=== PATIENT | male | born 1995 ===

== ENCOUNTER 2023-10-24 00:10 | Emergency (ER) | payer OTHER ==
[~2023-10-24] VITALS: Ht 172.7 cm; Wt 122.0 kg
[2023-10-24 02:11] LABS: Albumin/Globulin Ratio 1.1 (0.8-1.8); Bilirubin, Total 0.4 mg/dL (0.1-1.0); Bun/Creatinine Ratio 17.6 (12.0-20.0); Calcium, Blood 8.5 mg/dL (8.5-10.1); Creatinine, Blood 0.63 mg/dL (0.60-1.20); Globulin, Blood 3.8 g/dL (2.2-4.0); Total Protein, Blood 7.8 g/dL (6.4-8.2)
[2023-10-24 02:21] LABS: BASOPHILS ABSOLUTE AUTO 0.08 K/mm3 (0.00-0.23); BASOPHILS PERCENT AUTO 1 % (0-2); EOSINOPHILS ABSOLUTE AUTO 0.04 K/mm3 (0.00-0.68); EOSINOPHILS PERCENT AUTO 0 % (0-6); Hematocrit 46.4 % (37.0-53.0); Hemoglobin 15.6 g/dL (13.5-17.5); IMMATURE GRAN ABSOLUTE AUTO 0.06 K/mm3 (0.00-0.10); IMMATURE GRAN PERCENT AUTO 0 % (0-1); LYMPHOCYTES PERCENT AUTO 11 % (21-46); MONOCYTES ABSOLUTE AUTO 1.22 K/mm3 (0.16-1.47); MONOCYTES PERCENT AUTO 7 % (4-13); Mean Corpuscular HGB Conc 33.6 g/dL (31.5-36.5); Mean Corpuscular Volume 89 fL (80-100); Mean Platelet Volume 10.7 fL (9.1-12.4); NEUTROPHILS ABSOLUTE AUTO 13.57 K/mm3 (1.96-9.15); NEUTROPHILS PERCENT AUTO 81 % (41-73); Platelet Count 273 K/mm3 (150-400); RDW Standard Deviation 39.1 fL (35.1-46.3); White Blood Cell Count 16.77 K/mm3 (4.00-11.30)
[2023-10-24 03:04] LABS: Source, Urine Clean Catch
[2023-10-24] MEDS ORDERED: NS 1,000 ML IV SCH (03:10)
[2023-10-24 03:24] LABS: Appearance, Urine Clear (Clear); Bilirubin, Urine Neg (Neg); Blood, Urine Neg (Neg); Color, Urine Yellow (P-Yellow); Glucose Qualitative, Urine Neg (Neg); Ketones, Urine Neg (Neg); Leukocyte Esterase, Urine Neg (Neg); Nitrite, Urine Neg (Neg); Protein, Urine Neg (Neg); Urobilinogen, Urine NORM (Normal)
[2023-10-24] MEDS ORDERED: ONDA4ODT MM (05:12)
== END 2023-10-24 05:30 | disposition home or self-care (01) ==
LOC: ER 00:10
PROVIDERS: Emergency Medicine; Student in an Organized Health Care Education/Training Program
DX: R11.2 Nausea with vomiting, unspecified (principal); R10.13 Epigastric pain; E86.0 Dehydration; Z68.41 Body mass index [BMI] 40.0-44.9, adult
CPT/HCPCS: 76705; 80053; 81003; 83690; 85025; 87086; 99284-25; J7030

== ENCOUNTER → 2023-11-01 | Outpatient (CLI) | payer OTHER ==
[~2023-11-01] MED LIST: AMOCLA875 PO; ONDA4ODT MM; OXAYDO5 M4 PO
[2023-11-01 14:25] LABS: BASOPHILS PERCENT AUTO 1 % (0-2); EOSINOPHILS ABSOLUTE AUTO 0.11 K/mm3 (0.00-0.68); EOSINOPHILS PERCENT AUTO 1 % (0-6); Hematocrit 45.4 % (37.0-53.0); Hemoglobin 15.5 g/dL (13.5-17.5); IMMATURE GRAN ABSOLUTE AUTO 0.04 K/mm3 (0.00-0.10); IMMATURE GRAN PERCENT AUTO 0 % (0-1); LYMPHOCYTES ABSOLUTE AUTO 3.09 K/mm3 (0.84-5.20); LYMPHOCYTES PERCENT AUTO 25 % (21-46); MONOCYTES ABSOLUTE AUTO 0.94 K/mm3 (0.16-1.47); MONOCYTES PERCENT AUTO 8 % (4-13); Mean Corpuscular HGB 30.4 pg (26.0-34.0); Mean Corpuscular HGB Conc 34.1 g/dL (31.5-36.5); Mean Corpuscular Volume 89 fL (80-100); Mean Platelet Volume 9.9 fL (9.1-12.4); NEUTROPHILS ABSOLUTE AUTO 8.23 K/mm3 (1.96-9.15); NEUTROPHILS PERCENT AUTO 66 % (41-73); Platelet Count 284 K/mm3 (150-400); RDW Coefficient Variation 11.9 % (11.7-14.2); RDW Standard Deviation 38.3 fL (35.1-46.3); White Blood Cell Count 12.51 K/mm3 (4.00-11.30)
[2023-11-01 14:26] LABS: Albumin, Blood 3.7 g/dL (3.4-5.0); Albumin/Globulin Ratio 0.8 (0.8-1.8); Bilirubin, Total 0.5 mg/dL (0.1-1.0); Bun/Creatinine Ratio 13.2 (12.0-20.0); Calcium, Blood 9.2 mg/dL (8.5-10.1); Creatinine, Blood 0.76 mg/dL (0.60-1.20); Globulin, Blood 4.5 g/dL (2.2-4.0); Potassium, Blood 3.8 mmol/L (3.5-5.5); Total Protein, Blood 8.2 g/dL (6.4-8.2)
== END ==
LOC: LAB SHORT 14:23 → LAB 14:23
PROVIDERS: Physician Assistant
DX: R10.9 Unspecified abdominal pain (principal)
CPT/HCPCS: 80053; 83690; 85025

== ENCOUNTER 2023-11-02 17:27 | Observation (INO) | payer OTHER ==
[~2023-11-02] VITALS: Ht 172.7 cm; Wt 122.9 kg
[~2023-11-02 17:27] MED LIST changes: -AMOCLA875 PO; -OXAYDO5 M4 PO
[2023-11-02] MEDS ORDERED: Ketorolac Tromethamine 15mg Vial IV ONE (17:40)
[2023-11-02] MEDS ORDERED: Ondansetron HCl 2 MG / ML 2ML Vial IV ONE ×2 (17:40→19:40)
[2023-11-02] MEDS ORDERED: NS 1,000 ML IV SCH ×2 (17:40→21:00)
[2023-11-02 18:00] LABS: BASOPHILS ABSOLUTE AUTO 0.07 K/mm3 (0.00-0.23); BASOPHILS PERCENT AUTO 0 % (0-2); EOSINOPHILS ABSOLUTE AUTO 0.03 K/mm3 (0.00-0.68); EOSINOPHILS PERCENT AUTO 0 % (0-6); Hematocrit 45.8 % (37.0-53.0); Hemoglobin 16.2 g/dL (13.5-17.5); IMMATURE GRAN ABSOLUTE AUTO 0.09 K/mm3 (0.00-0.10); IMMATURE GRAN PERCENT AUTO 1 % (0-1); LYMPHOCYTES ABSOLUTE AUTO 2.95 K/mm3 (0.84-5.20); LYMPHOCYTES PERCENT AUTO 17 % (21-46); MONOCYTES ABSOLUTE AUTO 1.12 K/mm3 (0.16-1.47); MONOCYTES PERCENT AUTO 6 % (4-13); Mean Corpuscular HGB 30.5 pg (26.0-34.0); Mean Corpuscular HGB Conc 35.4 g/dL (31.5-36.5); Mean Corpuscular Volume 86 fL (80-100); Mean Platelet Volume 10.3 fL (9.1-12.4); NEUTROPHILS ABSOLUTE AUTO 13.67 K/mm3 (1.96-9.15); NEUTROPHILS PERCENT AUTO 76 % (41-73); Platelet Count 382 K/mm3 (150-400); RDW Coefficient Variation 11.9 % (11.7-14.2); RDW Standard Deviation 37.6 fL (35.1-46.3); Red Blood Cell Count 5.31 M/mm3 (4.30-5.90); White Blood Cell Count 17.93 K/mm3 (4.00-11.30)
[2023-11-02 18:23] LABS: Albumin/Globulin Ratio 0.9 (0.8-1.8); Bun/Creatinine Ratio 21.4 (12.0-20.0); Calcium, Blood 9.4 mg/dL (8.5-10.1); Creatinine, Blood 0.65 mg/dL (0.60-1.20); Globulin, Blood 4.3 g/dL (2.2-4.0); Potassium, Blood 3.8 mmol/L (3.5-5.5); Total Protein, Blood 8.3 g/dL (6.4-8.2)
[2023-11-02] MEDS ORDERED: HYDROmorphone HCl/Pf 1MG SYR IV ONE ×2 (18:30→19:55)
[2023-11-02 18:54] LABS: Influenza A, PCR NEGATIVE (NEGATIVE); Influenza B, PCR NEGATIVE (NEGATIVE); Resp Syncytial Virus, PCR NEGATIVE (NEGATIVE); SARS-Cov-2 (COVID-19) PCR, MMC NEGATIVE (NEGATIVE)
[2023-11-02] MEDS ORDERED: Piperacillin/Tazobactam Sod 4.5 GM in NS 100 ML IV ONE (20:20)
[2023-11-02] MEDS ORDERED: Ondansetron HCl 2 MG / ML 2ML Vial IV PRN (20:45)
[2023-11-02] MEDS ORDERED: HYDROmorphone HCl/Pf 1MG SYR IV PRN (20:50)
[2023-11-02 22:53] VITALS: BP 169/105
[2023-11-03] VITALS (21 sets, daily range): BP systolic 150–188; BP diastolic 90–127
[2023-11-03] MEDS ORDERED: Piperacillin/Tazobactam Sod 4.5 GM in NS 100 ML IV SCH (03:00)
--- NOTE | 2023-11-03 04:41 | NUR ---
SHIFT SUMMARY PT ER ADMIT THIS SHIFT FOR ACUTE APPY. PT PAIN HAS BEEN MANAGED WITH MEDS PER EMAR. NO NAUSEA OR VOMITTING. PT HAS BEEN UP AND AMBULATING IN ROOM INDEPENDENTLY. IV ABX PER ORDERS, IVF INFUSING. PLAN IS FOR SURGERY TODAY. BED LOWEST POSITION, CALL LIGHT WITHIN REACH.
--- NOTE | 2023-11-03 08:49 | NUR ---
DR HERNANDEZ IN TO SEE PT.
[2023-11-03] MEDS ORDERED: propofoL 20 ML IV ONE (09:58)
[2023-11-03] MEDS ORDERED: FentaNYL Citrate 50 MCG/ML 2 ML Injection ONE ×4 (09:58→14:08)
[2023-11-03] MEDS ORDERED: Rocuronium Bromide 10 MG/ML 5ML Injection IV ONE ×3 (09:59→12:20)
--- NOTE | 2023-11-03 10:52 | NUR ---
PT TO PRE OP
[2023-11-03] MEDS ORDERED: Bupivacaine 0.5% Inj 10 ML Vial ONE (10:53)
--- NOTE | 2023-11-03 11:07 | NUR ---
PT ARRIVES TO PACU VIA [facility] FOR PREOP CARE AT 1055. PLEASANT & COOPERATIVE. SURGICAL HAT/PAS SLEEVES/BP CUFF IN PLACE. AFEBRILE/VSS. SURGICAL PACK COMPLETE. LR AT TKO. WARM BLANKETS PLACED. NO COMPLAINTS. APPEARS COMFORTABLE & RELAXED. NOW RESTING QUIETLY.
[2023-11-03] MEDS ORDERED: Midazolam HCl 1MG / ML 2ML Vial ONE (11:30)
--- NOTE | 2023-11-03 11:47 | NUR ---
TO OR 1 VIA DEE DEE w/EQUAL OPPORTUNITY DIRECTOR AT 1145 IN STABLE CONDITION.
[2023-11-03] MEDS ORDERED: Metoclopramide HCl 5MG / ML 2ML Vial ONE (11:55)
[2023-11-03] MEDS ORDERED: Labetalol HCL 5 MG/ML 4ML Injection (Single Dose) ONE ×2 (11:56→14:12)
[2023-11-03] MEDS ORDERED: Phenylephrine HCl 100 MCG/ML-NS 10MLSYR (1MG/10ML) ONE (12:04)
[2023-11-03] MEDS ORDERED: Dexamethasone Sod Phos 10 MG/ML 1ML VIAL ONE (12:17)
[2023-11-03] MEDS ORDERED: Ondansetron HCl 2 MG / ML 2ML Vial ONE (12:17)
[2023-11-03] MEDS ORDERED: Sugammadex Sodium 200 MG/2ML SDV (100 MG/ML) ONE (13:05)
[2023-11-03] MEDS ORDERED: Flumazenil 0.1 MG / ML 5ML Vial ONE (13:37)
[2023-11-03] MEDS ORDERED: AmLODIPine Besylate 5 MG Tab PO SCH (15:15)
[2023-11-03] MEDS ORDERED: HydrALAZINE HCl 25 MG Tab PO PRN (15:15)
--- NOTE | 2023-11-03 15:17 | NUR ---
PT ARRIVED TO UNIT FROM PACU. TRANSFERRED PT FROM [facility] TO BED. PT WOKE BRIEFLY AND STATED ABDOMEN PAINFUL, ASKED FOR PAIN MEDS AND THEN RETURNED TO SLEEP. HYPERTENSIVE. CALLED DR LEIJA AND OBTAINED ORDERS. CALL LIGHT IN REACH. S.O. AT BEDSIDE.
[2023-11-03] MEDS ORDERED: OxyCODONE HCL 5 MG TAB PO PRN (17:10)
--- NOTE | 2023-11-03 17:28 | NUR ---
SUMMARY PT HAS BEEN HYPERTENSIVE. OBTAINED ORDERS FROM DR LEIJA TO TREAT. ADMINISTERED NORVASC THIS AFTERNOON. 1700 VS SHOWED A BP OF 178/108. ADMINISTERED PRN HYDRALAZINE PER ORDERS. MEDICATED PT PER ORDERS FOR PAIN. PT HAS BEEN UP TO VOID. TOLERATING CLEARS. REGULAR DINNER ORDERED. IV ABX CONTINUED PER ORDERS. LAP SITES TO ABD X5 W/TISS ADHESIVE CDI. PT PLEASANT AND COOPERATIVE. SO AT BEDSIDE. CALL LIGHT IN REACH.
--- NOTE | 2023-11-04 04:13 | NUR ---
SHIFT SUMMARY NITIN WAS ALERT AND ORIENTED AT START OF SHIFT. PT WAS WITH SIGNIFICANT OTHER. C/O PAIN TO ABD MEDICATED EFFECTIVELY PER EMAR. INSCISION SITES CDI. PT ABLE TO AMBULATE INDEPENDENTLY, TITRATED OFF OF O2. NO ACUTE EVENTS. PT RESTING IN BED AT A LOW POSITION WITH CALL LIGHT IN REACH.
[2023-11-04 04:35] VITALS: BP 160/96
[2023-11-04 07:18] VITALS: BP 168/103
[2023-11-04] MEDS ORDERED: AMOCLA875 PO ×2 (09:02)
[2023-11-04] MEDS ORDERED: OXAYDO5 M4 PO ×2 (11:42)
--- NOTE | 2023-11-04 12:20 | NUR ---
DISCHARGE SUMMARY POD1 LAP APPY, A/OX4, VSS, TOLERATING PO, AMBULATING INDEPENDENTLY, PAIN WELL MANAGED, MEDICATIONS FAXED TO [facility]. DISCUSSED DSICHARGE INSTRUCTIONS WITH HIM INCLUDING HOME CARE, MEDICATIONS, AND FOLLOW UP APPOINTMENTS. IV REMOVED DURING DC INSTRUCTION DISCUSSION. NO QUESTIONS AT THIS TIME, PT DECLINED WC ESCORT AND LEFT AMBULATORY TO GO HOME WITH HIS DAD.
== END 2023-11-04 12:17 | disposition home or self-care (01) ==
LOC: ER 17:27 → SURS 17:28
PROVIDERS: Student in an Organized Health Care Education/Training Program; Surgery; ADMIT Internal Medicine
PROC: 0DTJ0ZZ Resection of Appendix, Open Approach (ICD-10-PCS; principal; 2023-11-03 11:15)
PROC: 3E0T3BZ Introduction of Anesthetic Agent into Peripheral Nerves and Plexi, Percutaneous Approach (ICD-10-PCS; principal; 2023-11-03 11:15)
DX: K35.80 Unspecified acute appendicitis (principal); K66.0 Peritoneal adhesions (postprocedural) (postinfection); I10 Essential (primary) hypertension; Z79.899 Other long term (current) drug therapy
CPT/HCPCS: 0241U; 74177; 80053; 83690; 85025; 88304; 96361; 96365-59; 96366; 96375; 96376; 99285-25; A9270; G0378; J1100; J1170; J1885; J2250; J2371; J2405; J2543; J2704; J2765; J3010; J7030; Q9967